=== PATIENT | female | born 1950 | race Caucasian/White ===

== ENCOUNTER → 2016-12-04 | Outpatient (CLI) | payer OTHER | LOC: MMPC 11:11 | PROVIDERS: ATTEND Surgery | DX: Z80.0 Family history of malignant neoplasm of digestive organs (principal); Z12.11 Encounter for screening for malignant neoplasm of colon; R10.84 Generalized abdominal pain | CPT/HCPCS: 99202; G0463 ==

== ENCOUNTER → 2016-12-22 | Day surgery (SDC) | payer OTHER ==
[~2016-12-22] MED LIST: GLYCOPYRROLATE 0.2 MG/1 ML VIAL ONE; LIDOCAINE W/ SODIUM BICARB 0.5 ML SYR ONE; Lactated Ringers 1,000 ML PRIMARY IV ONE; MIDAZOLAM 5 MG/1 ML ONE; fentaNYL Inj 100 MCG/2 ML VIAL ONE
[2016-12-22 10:31] VITALS: RESP 15
--- NOTE | 2016-12-22 11:25 | GEN.OPNOTE ---
Colonoscopy Procedure Note Surgery Date: 12/22/16 Preoperative Diagnosis: Family history of colon cancer. Chronic abdominal pain. Colon cancer screening. Postoperative Diagnosis: Same. Procedure: Complete colonoscopy. Surgeon: Keanu Renteria MD Anesthesia Provider: Soham Gonzalez CRNA Anesthesia Type: MAC Indications: Patient with a family history of colon cancer. She is on a 5 year colonoscopy schedule. Her last colonoscopy was in July 2010. She is due for follow-up colonoscopy. Findings: Prep : [Very good.] Cecum : [Normal] Ascending : [Normal] Transverse : [Normal] Sigmoid : [Normal] Rectum : [Normal] Digital Rectal Exam : [Normal] A lubricated flexible colonoscope was inserted and passed to the blind end of the cecum. The ileocecal valve and blind end of the cecum as well as the appendiceal orifice were all clearly seen. Air was aspirated as the scope was withdrawn. The entire colonoscopy was normal without polyp, tumor, neoplastic mass, infectious or inflammatory process. The scope was withdrawn completing the procedure. Patient tolerated the entire procedure well without complication. She was taken to outpatient surgery in stable condition. Follow-up will be with my office on an as-needed basis. It is recommended she undergo follow-up colonoscopy in 5 years secondary to a family history of colon cancer.
[2016-12-22 12:47] VITALS: TEMP 97.5
== END | disposition home or self-care (01) ==
LOC: SDSC 10:03
PROVIDERS: ATTEND Surgery
DX: Z12.11 Encounter for screening for malignant neoplasm of colon (principal); Z80.0 Family history of malignant neoplasm of digestive organs; R10.9 Unspecified abdominal pain
CPT/HCPCS: 45378; J2704; J3010; J2250; J7120

== ENCOUNTER → 2017-01-17 | Outpatient (CLI) | payer OTHER | LOC: MMPC 09:00 | PROVIDERS: ATTEND Nurse Practitioner Family | DX: M79.1 Myalgia (principal); G47.09 Other insomnia; R53.83 Other fatigue; R42 Dizziness and giddiness; G44.40 Drug-induced headache, not elsewhere classified, not intractable; I10 Essential (primary) hypertension; E03.9 Hypothyroidism, unspecified; Z98.84 Bariatric surgery status | CPT/HCPCS: 99213; G0463 ==

== ENCOUNTER → 2017-01-18 | Outpatient (CLI) | payer OTHER ==
[2017-01-18 07:21] LABS: BASOPHILS # (AUTO) 0.12 10*3/UL; BASOPHILS % (AUTO) 2.4 % (0-1); EOSINOPHILS # (AUTO) 0.38 10*3/UL; EOSINOPHILS % (AUTO) 7.6 % (0-8); HEMATOCRIT 30.1 % (37.0-47.0); HEMOGLOBIN 9.6 g/dL (12.0-16.0); LYMPHOCYTES # (AUTO) 1.21 10*3/uL; MEAN CORPUSCULAR HEMOGLOBIN 24.4 PG (27-31); MEAN CORPUSCULAR HGB CONC 31.9 g/dL (33-37); MEAN CORPUSCULAR VOLUME 76.4 FL (81-99); MEAN PLATELET VOLUME 8.3 FL (7.4-12.2); MONOCYTES # (AUTO) 0.49 10*3/UL (0.3-0.8); MONOCYTES % (AUTO) 9.7 % (5-15); NEUTROPHILS # (AUTO) 2.82 10*3/UL; RED BLOOD COUNT 3.94 10^6/uL (4.20-5.40)
[2017-01-18 07:32] LABS: BUN/CREATININE RATIO 19.09 (6-20); CALCIUM 8.8 mg/dL (8.7-10.7); CHOL/HDL RATIO 2.87 RATIO (0-4.0); LDL CHOLESTEROL,CALCULATED 74.6 mg/dL; MAGNESIUM 1.7 mg/dL (1.6-2.4); SERUM ALBUMIN 3.7 g/dL (3.5-4.8)
[2017-01-18 07:51] LABS: PLATELET MORPHOLOGY COMMENT NORMAL MORPHOLOGY (NORM); RBC MORPHOLOGY COMMENT NORMAL MORPHOLOGY (NORM); WBC MORPHOLOGY COMMENT NORMAL MORPHOLOGY (NORM)
[2017-01-18 08:51] LABS: FREE T4 (FREE THYROXINE) 1.36 ng/dL (0.93-1.71)
== END ==
LOC: LAB 06:59
PROVIDERS: ATTEND Nurse Practitioner Family
DX: I10 Essential (primary) hypertension (principal); R42 Dizziness and giddiness; M79.1 Myalgia; E03.9 Hypothyroidism, unspecified; G47.09 Other insomnia; R53.83 Other fatigue; G44.40 Drug-induced headache, not elsewhere classified, not intractable; R20.2 Paresthesia of skin; Z98.84 Bariatric surgery status
CPT/HCPCS: 36415; 80053; 80061; 82607; 83735; 83789; 84207; 84439; 84443; 85025

== ENCOUNTER → 2017-01-23 | Outpatient (CLI) | payer OTHER | LOC: MMPC 09:00 | PROVIDERS: ATTEND Nurse Practitioner Family | DX: D53.8 Other specified nutritional anemias (principal); E03.9 Hypothyroidism, unspecified | CPT/HCPCS: 99213; G0463 ==

== ENCOUNTER → 2017-03-14 | Outpatient (CLI) | payer OTHER ==
[2017-03-14 12:30] LABS: BASOPHILS # (AUTO) 0.05 10*3/UL; BASOPHILS % (AUTO) 1.1 % (0-1); EOSINOPHILS # (AUTO) 0.23 10*3/UL; EOSINOPHILS % (AUTO) 5.2 % (0-8); HEMOGLOBIN 12.2 g/dL (12.0-16.0); LYMPHOCYTES # (AUTO) 0.86 10*3/uL; MEAN CORPUSCULAR HEMOGLOBIN 27.3 PG (27-31); MEAN CORPUSCULAR VOLUME 82.8 FL (81-99); MEAN PLATELET VOLUME 8.9 FL (7.4-12.2); MONOCYTES # (AUTO) 0.57 10*3/UL (0.3-0.8); MONOCYTES % (AUTO) 12.8 % (5-15); NEUTROPHILS # (AUTO) 2.73 10*3/UL; NEUTROPHILS % (AUTO) 61.5 % (50-80); RED BLOOD COUNT 4.47 10^6/uL (4.20-5.40)
[2017-03-14 12:31] LABS: PLATELET MORPHOLOGY COMMENT NORMAL MORPHOLOGY (NORM); RBC MORPHOLOGY COMMENT NORMAL MORPHOLOGY (NORM); WBC MORPHOLOGY COMMENT NORMAL MORPHOLOGY (NORM)
== END ==
LOC: MOB LAB 11:29
PROVIDERS: ATTEND Nurse Practitioner Family
DX: E03.9 Hypothyroidism, unspecified (principal); D50.8 Other iron deficiency anemias; M54.6 Pain in thoracic spine; L30.8 Other specified dermatitis
CPT/HCPCS: 36415; 84443; 85025; 99213; G0463

== ENCOUNTER → 2017-03-19 | Outpatient (CLI) | payer OTHER ==
--- NOTE | 2017-03-19 14:48 | DI ---
MRI THORACIC SPINE W/O CN,03/19/2017 10:02 AM: Clinical History: Acute thoracic back pain. Previous Exam: None at this facility. Findings: Multiplanar MR images are obtained through the thoracic spine without contrast. Bony alignment is anatomic. Marrow signal is preserved. Vertebral body height is preserved. The thora cic spinal cord descends normally with normal course, caliber and signal characteristics. Visualized portions of the posterior ribs are unremarkable. The central canal is normal and bilateral neuroforamina are widely patent. Individual intervertebral disc spaces: T1-T6: No broad-based disc bulges nor stenosis. T6/7: There is a 2 mm broad-based disc bulge without significant stenosis. T7/8: There is a broad-based disc bulge slightly eccentric to the right contributing to no significan t stenosis. T8/9: Through T12/L1: No significant stenosis. Impression: No findings to explain back pain. There is some mild disc disease throughout the mid thoracic spine a s above, but no significant stenosis.
== END ==
LOC: MRI 10:01
PROVIDERS: ATTEND Nurse Practitioner Family
DX: M54.6 Pain in thoracic spine (principal); M47.24 Other spondylosis with radiculopathy, thoracic region
CPT/HCPCS: 72146

== ENCOUNTER → 2017-03-22 | Outpatient (CLI) | payer OTHER | LOC: MMPC 09:00 | PROVIDERS: ATTEND Nurse Practitioner Family | DX: M54.6 Pain in thoracic spine (principal) | CPT/HCPCS: 99213; G0463 ==

== ENCOUNTER → 2017-04-05 | Outpatient (CLI) | payer OTHER | LOC: MMPC 10:00 | PROVIDERS: ATTEND Neurological Surgery | DX: M51.24 Other intervertebral disc displacement, thoracic region (principal) | CPT/HCPCS: 99213; G0463 ==

== ENCOUNTER 2017-04-18 06:56 | Day surgery (SDC) | payer OTHER ==
[2017-04-18 07:09] VITALS: RESP 16; TEMP 97.6
--- NOTE | 2017-04-18 07:43 | GEN.OPNOTE ---
Interlaminar PEYTON Procedure: Interlaminar Epidural Steriod Injection Procedure Code - Neurosurgery: 51564 : Cervical Epidural Injection (Single) Level: Thoracic Preoperative Diagnosis: Thoracic Disc Protrusion Postoperative Diagnosis: same -: Consent: Rationale for procedure, nature of procedure, possible risks and benefits were discussed with the patient. Risks including allergic reaction to medications, known effects of steroid medications including transient elevation in blood sugar with aggravation of pre-existing diabetes and remote risk of aseptic necrosis of the hip. Pain at the injection site, inadvertent dural puncture with resultant in CSF leak and headache possibly requiring further treatment. Infection or bleeding with potential risk of neurologic injury with weakness, paralysis or were all reviewed with the patient who wished to proceed. Anesthesia, sedation: No intravenous access or sedation was used. Physiologic monitoring of pulse and oxygen saturation was utilized. Procedure: The patient was placed prone on the operating room table, prepped with Chloroprep and sterilely draped. The skin was anesthetized with 1% Buffered Xylocaine. Under fluoroscopic control a 22-gauge Touhy needle was advanced into the epidural space at the T78 level. Using loss-of- resistance technique the epidural space was identified. Omnipaque was injected under real- time fluoroscopy demonstrating an epidurogram. Following this 5 ml of a mixture of triamcinolone (40mg/ml), 10 mg dexamethasone and 1% lidocaine was injected epidurally. AP and lateral images of the final needle placement were obtained. The needle was removed and the patient returned to the post procedure recovery room where they were monitored for any side effects. Pain assessment: Preprocedure pain []/10, post procedure pain []/10. Discharge instructions: Patient was given a pain log to be filled out and returned. A delayed response to the steroids of 2-5 days was discussed.
[2017-04-18] MEDS ORDERED: BUPivacaine Inj 0.25% PF - 10ml vial EPIDURAL ONE (09:00)
[2017-04-18] MEDS ORDERED: TRIAMCINOLONE ACETONIDE 40 MG/1 ML IAC ONE (09:00)
[2017-04-18] MEDS ORDERED: DEXAMETHASONE PF 10 MG/1 ML VIAL IM ONE (09:00)
== END 2017-04-18 07:46 | disposition home or self-care (01) ==
LOC: SDSC 06:56
PROVIDERS: ATTEND Pain Medicine Interventional Pain Medicine
DX: M51.24 Other intervertebral disc displacement, thoracic region (principal)
CPT/HCPCS: 62321; 76000; J1100; J3301; S0020